=== PATIENT | female | born 1940 | race Caucasian/White ===

== ENCOUNTER → 2017-10-13 13:41 | Outpatient (REF) | payer MEDICARE, MEDICAID, SELFPAY ==
[2017-10-13 13:55] LABS: Occult Blood,Stool Negative (Negative)
== END ==
LOC: LAB 13:41
PROVIDERS: Visit Provider Family Medicine
DX: R19.7 Diarrhea, unspecified (principal)
CPT/HCPCS: 82272; 87177; G0328

== ENCOUNTER → 2017-10-28 13:44 | Outpatient (CLI) | payer MEDICARE, MEDICAID, SELFPAY ==
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
== END ==
PROVIDERS: Family Provider Family Medicine; PCP Family Medicine; Visit Provider Family Medicine
DX: R26.89 Other abnormalities of gait and mobility (principal)
CPT/HCPCS: 70460; Q9967

== ENCOUNTER 2020-03-01 15:33 | Observation (INO) | payer MEDICARE, OTHER, MEDICAID, SELFPAY ==
[2020-03-01] VITALS (8 sets, daily range): BP systolic 97–121; BP diastolic 60–96; PULSE 104–129; RESP 16–28; TEMP 36.6–36.9; O2SAT 95–98; BMI 21.4; BMI 18.7
--- NOTE | 2020-03-01 15:59 | XR_ITS ---
PROCEDURE: XR CHEST PORTABLE CLINICAL HISTORY: soa and low oxygen saturation COMPARISON: CR CXR1 CHEST-PORTABLE from 08/10/2013 CR CXR CHEST(2 VIEWS-NOT PORTABLE) from 11/28/2015 CR XR CHEST PORTABLE from 03/17/2019 FINDINGS: This is a somewhat poor inspiration. There is subtle faint ill-defined nodular opacities right perihilar region and right upper lobe not seen on the previous chest film 03/17/2019. The left lung field is clear. Cardiac size is normal, there is mild aortic tortuosity. IMPRESSION: Poor inspiration with questionable minimal diffuse pneumonic infiltrate right perihilar region and right upper lobe Dictated by: Dr. Gera Esposito MD 03/01/2020 17:16 Dr. Gera Esposito MD in [place] 03/01/2020 17:16
--- NOTE | 2020-03-01 16:01 | PC.NURSE ---
pt presents from [place] , they found pt having soa with o2 sats 79% on RA , ems placed pt on NRB @ 10 lpm with o2 sat of 97% , pt coughed up dark thick sputum en route to hosp. upon arrival to ER o2 decreased to 5 lpm via cannula o2 sat staying around 96%
--- NOTE | 2020-03-01 16:27 | HMH.EDGENADL ---
ED Disposition Clinical Impression: Healthcare-associated pneumonia, Hypernatremia, Dehydration Respiratory failure with hypoxia Qualifiers: Chronicity: acute Qualified Code(s): J96.01 - Acute respiratory failure with hypoxia Disposition: Admitted As Inpatient Condition on Discharge: [facility] - Critical Care Critical Care Time: Yes Attestation: On 03/01/20, the high probability of a clinically significant, sudden or life threatening deterioration of the following system(s) required my full and direct attention, intervention and personal management. The time I documented below is in addition to time spent performing reported procedures but includes the following listed in this critical care notation. Vital system(s) involved:: Respiratory Failure My critical care processes included: Assessment & monitoring of V/S, Initial and Re-exams, Data Review/Interpretation, Coordinating Care, Medication Orders and management, Documentation Medical Decision Making - Brian Inquiry Pt receiving controlled substance: No Vital Signs: 03/01/20 15:35 03/01/20 16:05 03/01/20 16:30 Temperature 98 F Temperature Source Axillary Pulse Rate [Radial] 110 H 105 H 104 H Respiratory Rate 26 H 24 24 Blood Pressure [Right Arm] 110/80 110/60 121/65 Blood Pressure Mean [Right Arm] 90 76 83 Blood Pressure Source [Right Arm] Manual Cuff/ Auscultation Automatic Cuff Blood Pressure Position [Right Arm] Sitting Sitting 02 Sat by Pulse Oximetry 98 95 95 Oxygen Delivery Method Nasal Cannula Nasal Cannula Nasal Cannula Oxygen Flow Rate (LPM) 5 5 5 03/01/20 18:01 Temperature Temperature Source Pulse Rate [Radial] 112 H Respiratory Rate 18 Blood Pressure [Right Arm] 112/96 H Blood Pressure Mean [Right Arm] 101 Blood Pressure Source [Right Arm] Automatic Cuff Blood Pressure Position [Right Arm] 02 Sat by Pulse Oximetry 95 Oxygen Delivery Method Oxygen Flow Rate (LPM) - Lab Data Lab Results 03/01/20 15:45: WBC 18.1 H, RBC 5.38, Hgb 16.1, Hct 52.5 H, MCV 97.6, MCH 30.0, MCHC 30.7 L, RDW 14.7, Plt Count 521 H, MPV 9.1, Neut % (Auto) 76.0, Lymph % (Auto) 18.0, [place] % (Auto) 4.6, Eos % (Auto) 0.6, Baso % (Auto) 0.8, Neut # (Auto) 13.8 H, Lymph # (Auto) 3.2, [place] # (Auto) 0.8, Eos # (Auto) 0.1, Baso # (Auto) 0.1, Total Counted 100, Neutrophils % (Manual) 71, Lymphocytes % (Manual) 22, Monocytes % (Manual) 6, Eosinophils % (Manual) 1, Platelet Estimate Moderate increase, RBC Morphology Normal, Hypochromasia 2+ 03/01/20 15:45: Lactate 3.6 H 03/01/20 15:45: SARS-CoV-2 IgG Ab (Rapid) Negative, SARS-CoV-2 IgM Ab (Rapid) Negative 03/01/20 16:00: Specimen Source Left radial, O2 % 5 lpm nc, ABG pH 7.33 L, ABG pCO2 42.9, ABG pO2 62.4 L, ABG HCO3 22.0, ABG Total CO2 23.3, ABG O2 Saturation 91, ABG Base Excess -4.0 L, Baron Test Patient unable 03/01/20 16:42: Sodium 161 H*, Potassium 4.7, Chloride 120 H, Carbon Dioxide 29, Anion Gap 16.7 H, BUN 83 H, Creatinine 1.10 H, Estimated Creat Clear 34, Estimated GFR 48 L, Est GFR ( Amer) 58 L, Glucose 303 H, Calcium 9.9, Troponin I 0.01 03/01/20 16:52: Procalcitonin 0.162 03/01/20 17:30: Urine Color Yellow, Urine Appearance Clear, Urine pH 5.5, Ur Specific [place] 1.015, Urine Protein Negative, Urine Glucose (UA) 3+, Urine Ketones Negative, Urine Blood Negative, Urine Nitrate Negative, Urine Bilirubin Negative, Urine Urobilinogen 0.2, Ur Leukocyte Esterase Negative, Urine WBC Occasional, Ur Squamous Epith Cells 3-5, Urine Bacteria Trace, Hyaline Casts 3-5 Result diagrams: 03/01/20 15:45 03/01/20 16:42 Orders (Tests/Meds): ED MEDICATIONS Generic Name Dose Route Start Last Admin Trade Name Freq PRN Reason Stop Dose Admin Sodium Chloride 1,000 mls @ 999 mls/hr 03/01/20 17:15 03/01/20 17:06 Sod Chlor 0.9% 1000ml Bag IV 03/01/20 18:15 999 mls/hr .Q1H1M NORMA Administration ORDERS Category Date Time Status Full Resp Panel w/COVID ([facility]) Routine Lab 03/01/20 16:15 Received Troponin I Q3H [place]
[2020-03-01 16:28] LABS: ABG Oxygen Saturation 91 % (90-100); ABG PCO2 42.9 mmhg (35.0-45.0); ABG PH 7.33 mmol/L (7.35-7.45); ABG PO2 62.4 mmhg (80-100); ABG TCO2 23.3 mmhg (23-27)
--- NOTE | 2020-03-01 16:29 | PC.NURSE ---
full resp swab sent to lab
[2020-03-01 16:30] LABS: Basophils # 0.1 K/mm3 (0-0.2); Basophils % 0.8 % (0.1-2.0); Eosinophils # 0.1 K/mm3 (0.0-0.4); Eosinophils % 0.6 % (0.1-12.0); Hematocrit 52.5 % (37.0-47.0); Hemoglobin 16.1 g/dL (12.2-16.2); Lymphocytes # 3.2 K/mm3 (0.7-4.5); Mean Corpuscular HGB Conc 30.7 g/dL (31.8-35.4); Mean Corpuscular Volume 97.6 fl (81-99); Mean Platelet Volume 9.1 fl (7.4-10.4); Monocytes # 0.8 K/mm3 (0.1-1.0); Monocytes % 4.6 % (1.7-9.3); Neutrophils # 13.8 K/mm3 (1.8-7.8); Platelet Count 521 K/mm3 (142-424); Red Blood Count 5.38 M/mm3 (4.20-5.40); Red Cell Distribution Width 14.7 % (11.5-17.5); White Blood Count 18.1 K/mm3 (4.8-10.8)
--- NOTE | 2020-03-01 16:33 | ECG_ITS ---
APPROVED REPORT Exam: Resting ECG HR:105 bpm ECG Measurements Heart Rate 105 AXES IA 154 P 52 QRSd 76 QRS -85 QT 360 T 70 QTc 475 Conclusion Sinus tachycardia Left anterior fascicular block Inferior infarct, age undetermined Possible Anterolateral infarct, age undetermined Abnormal ECG Electronically signed by : Mohamud Esparza, 03/01/2020 19:50:55
[2020-03-01 16:34] LABS: Oxygen 5 LPM NC %
[2020-03-01 16:35] LABS: Allen's Test Patient Unable
[2020-03-01 16:36] LABS: Source Left Radial
[2020-03-01 16:37] LABS: MANUAL DIFFERENTIAL MANUAL DIFFERENTIAL (MANUAL DIFF)
[2020-03-01 16:42] LABS: Lactic Acid 3.6 mmol/L (0.7-2.1)
[2020-03-01 16:48] LABS: Eosinophils % 1 % (0-3); Lymphocytes % 22 % (10-50); Monocytes % 6 % (2-9); Neutrophils % 71 % (42-76); Platelet Estimate Moderate Increase; RBC Morphology Normal; Total Cells Counted 100
[2020-03-01 16:49] LABS: Hypochromasia 2+
[2020-03-01 17:03] LABS: Adenovirus,PCR Not Detected (NotDetected); Bordetella Pertussis Not Detected (NotDetected); Chlamydophila Pneumoniae, PCR Not Detected (NotDetected); Coronavirus 19, PCR Not Detected (NotDetected); Coronavirus 229E Not Detected (NotDetected); Coronavirus NL63 Not Detected (NotDetected); Coronavirus OC43 Not Detected (NotDetected); Coronovirus HKU1,PCR Not Detected (NotDetected); Human Metapneumovirus Not Detected (NotDetected); Influenza A, PCR Not Detected (NotDetected); Influenza AH1, 2009 Not Detected (NotDetected); Influenza AH1, PCR Not Detected (NotDetected); Influenza AH3,PCR Not Detected (NotDetected); Influenza B, PCR Not Detected (NotDetected); Mycoplasma Pneumoniae, PCR Not Detected (NotDetected); Parainfluenza 1, PCR Not Detected (NotDetected); Parainfluenza 2, PCR Not Detected (NotDetected); Parainfluenza 3, PCR Not Detected (NotDetected); Parainfluenza 4, PCR Not Detected (NotDetected); Respiratory Syncytial Virus Not Detected (NotDetected); Rhinovirus/Enterovirus Not Detected (NotDetected)
[2020-03-01 17:07] LABS: Chloride 120 mmol/L (98-107); Potassium 4.7 mmoL/L (3.5-5.1)
[2020-03-01 17:09] LABS: Sodium 161 mmol/L (136-145)
[2020-03-01 17:10] LABS: Anion Gap 16.7 mEq/L (5-15); Calcium 9.9 mg/dl (8.4-10.2); Carbon Dioxide 29 mmol/L (22.0-30.0); Creatinine Clearance Estimated 34 mL/min (50-200); Estimated Glomerular Filt Rate 48 ml/min (>60); GFR (African American) 58 ML/MIN (>60); Glucose 303 mg/dl (74-100)
[2020-03-01 17:27] LABS: Troponin I 0.01 ng/ml (0.00-0.034)
[2020-03-01 17:28] LABS: Blood Urea Nitrogen 83 mg/dl (7-17)
--- NOTE | 2020-03-01 17:51 | PC.NURSE ---
Dr Maza spoke with Dr Villar about admission awaiting covid test results.
[2020-03-01 17:52] LABS: Microscopic, Urine URINE MICROSCOPIC (MICROSCOPIC)
[2020-03-01 18:05] LABS: Appearance,Urine CLEAR (Clear); Bilirubin,Urine Negative (Negative); Blood, Urine Negative (Negative); Color,Urine YELLOW (Yellow); Glucose,Urine (UA) 3+ (Negative); Ketones,Urine Negative (Negative); Leukocyte Esterase,Urine Negative (Negative); Nitrate,Urine Negative (Negative); PH,Urine 5.5 (5.0-8.5); Protein,Urine Negative (Negative); Specific Gravity, Urine 1.015 (1.005-1.030); Urobilinogen,Urine 0.2 EU/dl (0.2)
[2020-03-01 18:17] LABS: Coronavirus 19 IgG Antibody Negative (Negative); Coronavirus 19 IgM Antibody Negative (Negative)
[2020-03-01 18:23] LABS: Procalcitonin 0.162 ng/mL (0.0-2.0)
[2020-03-01 18:38] LABS: Bacteria,Urine Trace /lpf; WBC,Urine Occasional #/hpf (0-3)
--- NOTE | 2020-03-01 19:47 | HMH.PHAVTE ---
[facility] Pharmacy VTE Monitoring - Patient Demographics Admission date: 03/01/20 Report Date: 03/01/20 Time: 19:47 Allergies/Adverse Reactions: Patient Allergies No Known Allergies Allergy (Verified 09/29/17 18:29) Height: 1.52 m Weight: 49.895 kg Patient Problems: Current Active Problems Healthcare-associated pneumonia (Acute) Hypernatremia (Acute) Dehydration (Acute) Respiratory failure with hypoxia (Acute) - VTE Risk Labs: VTE Related Lab Results Hgb 16.1 g/dL (12.2-16.2) 03/01/20 15:45 Hct 52.5 % (37.0-47.0) H 03/01/20 15:45 Plt Count 521 K/mm3 (142-424) H 03/01/20 15:45 BUN 83 mg/dl (7-17) H 03/01/20 16:42 Creatinine 1.10 mg/dl (0.52-1.04) H 03/01/20 16:42 Estimated Creat Clear 34 mL/min (50-200) 03/01/20 16:42 Clinical Trial Participant: No - Prophylaxis VTE Prophylaxis Ordered?: Yes Types of VTE Prophylaxis: TEDS Knee High
--- NOTE | 2020-03-01 19:53 | PC.NURSE ---
PT ARRIVED TO FLOOR VIA STRETCHER AT 194
[2020-03-01 19:56] LABS: Troponin I 0.03 ng/ml (0.00-0.034)
[2020-03-01 20:28] LABS: Reflex Lactic Add Lactic Reflex
--- NOTE | 2020-03-01 20:38 | PC.NURSE ---
Attempted to call pt's Saturnino RODRÍGUEZ regarding pts code status. Son did not answer, message left w/ son.
[2020-03-01 21:09] LABS: Lactic Acid Follow Up (RFLX 1) 2.8 mmol/L (0.7-2.1)
--- NOTE | 2020-03-01 21:15 | PC.NURSE ---
Attempted to reach son again regarding code status for pt.
--- NOTE | 2020-03-01 21:35 | PC.NURSE ---
attempted to reach son in regards to code status
--- NOTE | 2020-03-01 21:47 | PC.NURSE ---
2138 MR.KINSEY CROW EMANUELHAYDE RETURNED MY CALL .DIFFERENT STEPS OF CODE STEPS REVIEWED WITH HIM CONCERNING HIS MOM.THOSE WHICH HE AGREED UPON WERE NOTED AND WITNESSED BY JUSTYNA SALDANA RN,HER NURSE. HE WAS GIVEN VISTIING HOUR TIMES AND THAT IF HE NEEDED TO CHECK ON HIS MOM HE COULD CALL AND TALK WITH HER NURSE
[2020-03-01 22:51] LABS: Reflex Lactic (2 hrs) Add Lactic Reflex
[2020-03-01 23:20] LABS: POC Glucose,Bedside 156 (70-110)
[2020-03-01 23:34] LABS: Lactic Acid Follow up (RFLX 2) 3.2 mmol/L (0.7-2.1)
[2020-03-02] VITALS (8 sets, daily range): BP systolic 102–121; BP diastolic 59–70; PULSE 101–113; RESP 18–30; TEMP 36.2–37.9; O2SAT 94–99; BMI 18.5; BMI 18.6
--- NOTE | 2020-03-02 04:35 | PC.NURSE ---
Pt is arousable to name, but hard to awaken. Lung sounds have coarse crackles heard t/o lung bases. Pt was successfully weaned down to 2L NC this shift. Pt has required suctioning multiple times this shift. Clear yellow/brown sputum is drained out during suctioning. Pt had a temp of 100.1 earlier this shift, PRN tylenol suppository administered per MAR. Pt has been afebrile since. Flores remains patent and intact and continues to drain clear, dark yellow urine per gravity. LR continues to infuse @ 125 ml/hr. 20g PIV remains patent and intact in rt wrist. No other acute changes or complaints at this time.
[2020-03-02 05:41] LABS: POC Glucose,Bedside 226 (70-110)
[2020-03-02 06:32] LABS: Basophils # 0.1 K/mm3 (0-0.2); Basophils % 0.3 % (0.1-2.0); Hematocrit 46.8 % (37.0-47.0); Lymphocytes # 1.1 K/mm3 (0.7-4.5); Lymphocytes % 7.3 % (10-50); Mean Corpuscular HGB Conc 28.9 g/dL (31.8-35.4); Mean Corpuscular Hemoglobin 28.2 pg (27.0-31.2); Mean Corpuscular Volume 97.8 fl (81-99); Mean Platelet Volume 7.9 fl (7.4-10.4); Monocytes # 0.8 K/mm3 (0.1-1.0); Monocytes % 5.3 % (1.7-9.3); Neutrophils % 87.1 % (37.0-80.0); Platelet Count 280 K/mm3 (142-424); Red Blood Count 4.79 M/mm3 (4.20-5.40); Red Cell Distribution Width 14.2 % (11.5-17.5)
[2020-03-02 06:36] LABS: Chloride 125 mmol/L (98-107)
[2020-03-02 06:37] LABS: Potassium 4.3 mmoL/L (3.5-5.1)
[2020-03-02 06:40] LABS: Anion Gap 16.3 mEq/L (5-15); Blood Urea Nitrogen 75 mg/dl (7-17); Calcium 9.2 mg/dl (8.4-10.2); Carbon Dioxide 26 mmol/L (22.0-30.0); Creatinine Clearance Estimated 32 mL/min (50-200); Estimated Glomerular Filt Rate 61 ml/min (>60); GFR (African American) 73 ML/MIN (>60); Glucose 276 mg/dl (74-100)
[2020-03-02 06:59] LABS: MANUAL DIFFERENTIAL MANUAL DIFFERENTIAL (MANUAL DIFF)
[2020-03-02 07:04] LABS: Hemoglobin 13.5 g/dL (12.2-16.2)
[2020-03-02 07:13] LABS: Sodium 163 mmol/L (136-145)
--- NOTE | 2020-03-02 08:05 | HMH.HP ---
*Admission Date: 03/01/20 *Chief complaint: Shortness of breath/dyspnea *History of present illness: 79-year-old female patient presented to the emergency room from [facility]. The staff reports she had a drop in oxygen saturations to 60% on room air. The [facility] staff reported to squad the patient sounded like she aspirated afterwards she was suctioned, placed on 5 L of oxygen per nasal cannula, and was given Lasix. In the emergency department she received cefepime, Levaquin, and clindamycin for possible aspiration. IV fluids were started with lactated Ringer's at 125 cc an hour Lab work revealed white blood cell count 18.1. Chemistries sodium 161, potassium 4.7, BUN 83, and creatinine 1.1 03/01/20 CXR: IMPRESSION: Poor inspiration with questionable minimal diffuse pneumonic infiltrate right perihilar region and right upper lobe Dictated by: Vaibhav, This morning patient sitting in bed, oxygen saturations are 100% on 2 L per nasal cannula. Patient is unresponsive to verbal stimuli and moans with tactile stimuli. Lungs have rhonchi and wheezes, abdomen soft nontender pure wick is in place. Cefepime and levofloxacin will be continued IV, IV fluids will be changed to half-normal saline at 150 an hour [facility] History Medical History: Reports:: Diabetes Mellitus Type 2, Hyperlipidemia, Hypertension Denies:: Diabetes Mellitus Type 1 *Have you ever received a pneumonia vaccine?: Yes *Have you received a flu vaccine this season?: Yes - *Social History Smoking Status: Never smoker Alcohol Intake: never *Occupational Status:: disabled Household Members: other *Travel in the last 8 weeks: None Family Hx:: Unable to obtain Review of Systems - Review of Systems Review of systems:: unable to obtain - Constitutional Denies fever(s), Denies weight gain - Eyes Denies sensitivity to light - *Respiratory Denies cough Meds Home Medications Medication Instructions Recorded Confirmed Type Pioglitazone HCl [Actos] 30 mg PO DAILY 09/29/17 03/01/20 History lisinopriL [Lisinopril 2.5mg Tab] 5 mg PO DAILY 09/29/17 03/01/20 History Empagliflozin [Jardiance] 10 mg PO DAILY 03/17/19 03/01/20 History Insulin Glargine,Hum.rec.anlog 5 units SQ HS 03/17/19 03/01/20 History [Lantus Insulin 100units/mL 10mL vial] LORazepam [Lorazepam] 0.25 mg PO BID 03/17/19 03/01/20 History Melatonin/Pyridoxine HCl (B6) 1 each PO HS 03/17/19 03/01/20 History [Melatonin 5 mg Tablet] Metformin HCl 1,000 mg PO BID 03/17/19 03/01/20 History Simvastatin [Zocor] 10 mg PO HS 03/17/19 03/01/20 History Dextromethorphan HBr/Quinidine 1 each PO BID 03/01/20 03/01/20 History [Nuedexta 20-10 mg Capsule] Empagliflozin [Jardiance] 10 mg PO DAILY 03/01/20 03/01/20 History Memantine HCl [Memantine 10mg 10 mg PO BID 03/01/20 03/01/20 History Tablet] Mirtazapine [Remeron 15mg tablet] 15 mg PO HS 03/01/20 03/01/20 History Allergies Allergy/AdvReac Type Severity Reaction Status Date / Time No Known Allergies Allergy Verified 09/29/17 18:29 Exam Vital signs and Labs for Last 24 Hours: Temp Pulse Resp BP Pulse Ox 99.0 F 110 H 30 H 102/60 L 99 03/02/20 04:00 03/02/20 07:52 03/02/20 04:00 03/02/20 04:00 03/02/20 07:52 Laboratory Results - last 24 hr 03/01/20 15:45: WBC 18.1 H, RBC 5.38, Hgb 16.1, Hct 52.5 H, MCV 97.6, MCH 30.0, MCHC 30.7 L, RDW 14.7, Plt Count 521 H, MPV 9.1, Neut % (Auto) 76.0, Lymph % (Auto) 18.0, [place] % (Auto) 4.6, Eos % (Auto) 0.6, Baso % (Auto) 0.8, Neut # (Auto) 13.8 H, Lymph # (Auto) 3.2, [place] # (Auto) 0.8, Eos # (Auto) 0.1, Baso # (Auto) 0.1, Total Counted 100, Neutrophils % (Manual) 71, Lymphocytes % (Manual) 22, Monocytes % (Manual) 6, Eosinophils % (Manual) 1, Platelet Estimate Moderate increase, RBC Morphology Normal, Hypochromasia 2+ 03/01/20 15:45: Lactate 3.6 H 03/01/20 15:45: SARS-CoV-2 IgG Ab (Rapid) Negative, SARS-CoV-2 IgM Ab (Rapid) Negative 12
[2020-03-02 09:07] LABS: Lymphocytes % 17 % (10-50); Monocytes % 2 % (2-9); Neutrophils % 75 % (42-76); Platelet Estimate Normal; RBC Morphology Normal; Total Cells Counted 100
[2020-03-02 11:28] LABS: POC Glucose,Bedside 145 (70-110)
--- NOTE | 2020-03-02 12:41 | SW/DCPLANNER ---
Addendum entered by Sindy Napoles 03/03/20 10:18: I have follow up with Gerald Guyers regarding this patient. Original Note: This patient currently resides at [facility]. Patient is ICF level of care at [facility]. I will follow up with Gerald Glez until patient is medically stable for discharge.
--- NOTE | 2020-03-02 16:14 | PC.NURSE ---
1610 RN reassessment completed at this time, pt has mostly slept this shift. Pt has required total care this shift with turning Q2H. Pt will awaken to name, with difficulty waking at times. Spontaneous eye opening noted at times, speech is garbled. Oral care provided this shift, has required deep suctioning x2 this shift with green/brown sputum. Rhonchi heard throughout lungs, no s/s respiratory distress. SaO2 WNL on 2L O2. Abd soft with BS active in all quads. F/C patent and draining at bedside. BM noted this shift. Pt is now resting in bed on her right side with bed locked and in lowest position, side rails up x2, bed alarm activated. Will continue to monitor.
[2020-03-02 17:02] LABS: POC Glucose,Bedside 120 (70-110)
[2020-03-02 20:28] LABS: Chloride 124 mmol/L (98-107); Potassium 3.3 mmoL/L (3.5-5.1)
[2020-03-02 20:31] LABS: Anion Gap 18.3 mEq/L (5-15); Blood Urea Nitrogen 45 mg/dl (7-17); Carbon Dioxide 18 mmol/L (22.0-30.0); Creatinine Clearance Estimated 32 mL/min (50-200); Estimated Glomerular Filt Rate 97 ml/min (>60); GFR (African American) 117 ML/MIN (>60); Glucose 176 mg/dl (74-100)
[2020-03-02 20:32] LABS: Calcium 8.7 mg/dl (8.4-10.2)
[2020-03-02 20:33] LABS: Sodium 157 mmol/L (136-145)
[2020-03-02 21:47] LABS: POC Glucose,Bedside 153 (70-110)
[2020-03-03] VITALS (9 sets, daily range): BP systolic 116–139; BP diastolic 55–88; PULSE 68–110; RESP 16–24; TEMP 36.8–38.1; O2SAT 93–99; BMI 19.3
--- NOTE | 2020-03-03 05:49 | PC.NURSE ---
pt has rested with eyes closed most of shift, eyes do spontaneously open at times, pt does make sounds but it is garbled, coarse crackles noted on auscultation t/o, no s/s of respiratory distress, pt has remained on 2L NC with O2 sats 93-99%, merrill catheter patent and draining cloudy yellow urine
[2020-03-03 05:50] LABS: POC Glucose,Bedside 103 (70-110)
--- NOTE | 2020-03-03 06:00 | XR_ITS ---
PROCEDURE: XR CHEST PORTABLE Referring Doctor: Wilberto Burk Patient Age:79Y CLINICAL HISTORY: PNA Respiratory failure, hypoxia, hypernatremia COMPARISON: CR CXR CHEST(2 VIEWS-NOT PORTABLE) from 11/28/2015 CR XR CHEST PORTABLE from 03/17/2019 CR XR CHEST PORTABLE from 03/01/2020 FINDINGS: AP portable upright CXR compared to 03/01/2020 . No prominent findings but suspect very subtle developing infiltrates bilaterally. Left chest: . Suspect subtle patchy developing infiltrate seen projected over the periphery of the left mid lung, (projected over the inferior tip of scapula and anterior 3rd rib) . Question very subtle streaky infiltrate left infrahilar region partially obscuring descending aorta versus March 01 CXR the Right chest:. Question, suspect a subtle peripheral infiltrate right mid lung/right upper lobe projected over the inferior right scapula. Upper normal markings at the right lung base/only question scant subtle wispy infiltrate right lung base The heart normal size,. Mediastinum unremarkable but normal pulmonary vascularity. Generous right infrahilar region, upper normal prominence of may in part be accentuated by the less optimal inspiration today but warrants follow-up . Clips right upper quadrant from cholecystectomy IMPRESSION: Question/and suggestion of very subtle patchy infiltrates bilaterally-as detailed in body of report . These areas very slightly more apparent than 03/01/2020exam CXR Dictated by: Paulino Gonzalez MD 03/03/2020 06:38 Paulino Gonzalez MD in [place] 03/03/2020 06:38
[2020-03-03 10:20] LABS: POC Glucose,Bedside 99 (70-110)
[2020-03-03 16:31] LABS: POC Glucose,Bedside 85 (70-110)
--- NOTE | 2020-03-03 17:02 | HMH.ACPN2 ---
Internal Medicine - PN: Subj *Date: 03/03/20 *Time: 17:02 Interval history: No significant interval changes. Remains neurologically unable to speak or respond to questions. Pure wick system is in place. Chest films show subtle patchy changes, perhaps slightly worsening. Blood culture urine culture are pending. It was reported that at the [facility] he was taking crushed medications in applesauce. A speech evaluation was attempted but not fruitful. She does not have a G-tube. Exam Vital signs and Labs for Last 24 Hours: Temp Pulse Resp BP Pulse Ox 100.6 F H 96 H 18 136/80 97 03/03/20 15:57 03/03/20 15:32 03/03/20 15:32 03/03/20 15:32 03/03/20 15:32 Laboratory Results - last 24 hr 03/02/20 16:45: POC Glucose 120 H 03/02/20 20:15: Sodium 157 H*, Potassium 3.3 L D, Chloride 124 H, Carbon Dioxide 18 L D, Anion Gap 18.3 H, BUN 45 H D, Creatinine 0.60 D, Estimated Creat Clear 32, Estimated GFR 97, Est GFR ( Amer) 117 D, Glucose 176 H D, Calcium 8.7 03/02/20 21:33: POC Glucose 153 H 03/03/20 05:42: POC Glucose 103 03/03/20 10:13: POC Glucose 99 03/03/20 15:55: POC Glucose 85 I & O for Last 24 hours: Intake & Output 02/29/20 03/01/20 03/02/20 03/03/20 23:59 23:59 23:59 23:59 Intake Total 1100 / 1100 1127 / 1127 2014 Output Total 1651 / 1651 1225 / 1225 Balance 1100 / 1100 -524 / -524 790 / 790 Weight 95 lb 6 oz 94 lb 12.78 oz 98 lb 9 oz Microbiology Reports for the Last 24 Hours: Microbiology 03/01/20 15:45 Blood Blood Culture - Preliminary NO GROWTH AFTER 48 HOURS - Constitutional no acute distress, chronically ill appearing - *Routine HEENT Exam Head: Present: atraumatic Eye: Absent: periorbital ecchymosis ENT: Present: mucous membranes moist - *Routine Neck Exam Present: supple. Absent: lymphadenopathy - *Routine Respiratory Exam Present: CTA bilaterally - *Routine Cardiovascular Exam Present: RRR, murmur - *Routine Abdominal Exam Present: soft, normoactive bowel sounds. Absent: tenderness - *Routine Extremities Exam Absent: cyanosis, clubbing, edema - *Routine Skin Exam Present: lesions. Absent: jaundice - *Routine Neurological Exam Present: altered mental status. Absent: facial asymmetry, normal speech, tremors - Routine Psychiatric Exam Present: unable to assess Assessment and Plan (1) Healthcare-associated pneumonia Status: Acute Category: Medical Code(s): J18.9 - Pneumonia, unspecified organism (2) Hypernatremia Status: Acute Category: Medical Code(s): E87.0 - Hyperosmolality and hypernatremia (3) Dehydration Status: Acute Category: Medical Code(s): E86.0 - Dehydration (4) Respiratory failure with hypoxia Status: Acute Qualifiers: Chronicity: acute Qualified Code(s): J96.01 - Acute respiratory failure with hypoxia Category: Medical Code(s): J96.91 - Respiratory failure, unspecified with hypoxia - Assessment and plan all Dx Assessment and Plan for all problems:: As we moved to placement there is some question about transitioning to p.o. medications. Her nutritional intake will have to be clarified. Speech evaluation was noted. Options for G-tube placement will need to be clarified. Otherwise continue her current antibiotic regimen and follow with sequential chest x-rays.
--- NOTE | 2020-03-03 18:20 | PC.NURSE ---
PT HAS RESPONDED TO VOICE BUT HAS BEEN ASLEEP THROUGHOUT SHIFT. PT HAS TOLERATED 2L NC WELL THROUGHOUT SHIFT. RESPIRATIONS REGULAR AND UNLABORED. COARSE CRACKLES NOTED THROUGHOUT LUNGS. NO COUGH NOTED. PT HAS BEEN SUCTIONED NEEDED. PT HAS BEEN TURNED Q2 HOURS TO PREVENT SKIN BREAKDOWN. ORAL CARE PROVIDED Q2 HOURS. BED ALARM ON TO PROMOTE SAFETY. ABDOMEN IS SOFT AND NONTENDER. ACTIVE BOWEL SOUNDS HEARD IN ALL 4 QUADRANTS. NO BM THUS FAR. ABRAMS CATHETER IN PLACE W CLEAR YELLOW URINE NOTED. NO KINKS NOTED. NO EDEMA NOTED. NIRMALA RODRIGUEZ REPORTED PT TAKES MEDS CRUSHED AND GIVEN IN APPLE SAUCE. ATTEMPTED TO GIVE MEDS, BUT PT WOULDN'T OPEN MOUTH. DIDN'T FEEL COMFORTABLE GIVING THEM. THEY ALSO STATED PT DRINKS NECTAR THICK LIQUIDS. ENCOURAGED PT TO DRINKING BUT SHE STILL WOULDN'T OPEN MOUTH. PT HAS MOANED SOME AND THE ASSISTED STATED THAT IS NORMAL FOR HER. THEY ALSO SAID SHE IS ON 2L NC AT THE ASSISTED. PT RECEIVED CEFEPIME AND CLINDAMYCIN THIS SHIFT AND TOLERATED WELL. FSBS WNL. 1/2 NS INFUSING AT 150ML/HR. DISCUSSED [facility]IH DR PELAEZ THIS EVENING ABOUT PT'S CONDITION ABOUT HER NOT EATING OR DRINKING ANYTHING. HE STATED HE PLANS TO TALK TO FAMILY ABOUT CARE AND POSSIBLY TALK TO HOSPICE OR PLACE A FEEDING TUBE DEPENDING ON WHAT FAMILY WOULD LIKE. PT HAD A FEVER ONCE THIS SHIFT AND RECEIVED TYLENOL. PT IS SLEEPING W BED IN LOWEST POSITION. CALL LIGHT WITHIN REACH. BED IN LOWEST POSITION. VSS. WILL CONTINUE TO MONITOR.
[2020-03-03 21:21] LABS: POC Glucose,Bedside 82 (70-110)
--- NOTE | 2020-03-03 22:00 | PC.NURSE ---
WITH THE SRNA GIVING PT A BATH,LISTENED TO PT'S LUNGS THROUGHOUT,COASE CRACKLES NOTED MORE SO WITH INSPIROTORY BREATHING,TRIED SUCTIONING WITH YALKNER AND PT WOULD CLAP HER TEETH TOGETHER AND WOULD NOT LET YOU SUCTION HER.OBTAINED A SUCTION CATH AND WAS ABLE TO GET BETWEEN HER MISSING TEETH AND SUCTION HER,MUCUS NOTED IN CANISTER,PT LUNGS SOUND BETTER,I BELIEF MORE OF WHAT WAS HEARD WAS IN PT THROAT
[2020-03-04] VITALS (7 sets, daily range): BP systolic 121–151; BP diastolic 62–76; PULSE 72–109; RESP 16–27; TEMP 36.2–36.9; O2SAT 94–100; BMI 19.8
--- NOTE | 2020-03-04 01:11 | PC.NURSE ---
AUDIBLE GURGLING NOTED,PT AT TIMES WOULD COUGH.WITH TRYING TO SUCTION HER MOUTH WITH YALKNER SHE WOULD BUSINESS SERVICES COORDINATOR HER TEETH TOGETHER AND WOULD NOT LET YOU SUCTION,ORAL CARE GIVEN WITH THIS PT OPENED MOUTH A LITTLE,WAS ABLE TO SUCTION A LITTLE
--- NOTE | 2020-03-04 05:30 | PC.NURSE ---
PT SEEMS TO BE RESTING BETTER AFTER SHE WAS SUCTIONED A COUPLE TIMES TONIGHT WITH SUCTION CATH.RESP.EVEN AND UNLABORED THIS MORNING.LUNGS STILL WITH FINE CRACKLES.SAT.LEVEL AT 100% ON 2 LITERS OF OXYGEN,PT IS NOT ALERT OR ORIENTED,SOME RESPONSE TO VOICE,ABRAMS CATH PATENT AND DRAINING CLEAR YELLOW URINE.FSBS 83,PT IS NPO,SHE HAS BEEN TURNED EVERY 2 HOURS WITH ORAL CARE,PT MOUTH DRY THIS MORNING,ORAL CARE DONE AND LIP MOISTERIZER APPLIED.SKIN TAGS AND RAISED AREAS ON SKIN THROUGHOUT BODY,
[2020-03-04 05:42] LABS: POC Glucose,Bedside 83 (70-110)
--- NOTE | 2020-03-04 06:00 | XR_ITS ---
PROCEDURE: XR CHEST PORTABLE CLINICAL HISTORY: PNA COMPARISON: CR XR CHEST PORTABLE from 03/17/2019 CR XR CHEST PORTABLE from 03/01/2020 CR XR CHEST PORTABLE from 03/03/2020 FINDINGS: This is a poor inspiration, however there now is more diffuse ill-defined nodular opacities involving the entire right lung. The small focal questionable passively left perihilar region is stable and actually very faint. The remainder of the left lung field is clear. Cardiac size is normal and vascularity is normal and there is no pleural fluid. IMPRESSION: Diffuse subtle nodular opacities right lung and in this clinical environment Covid19 19 pneumonia must be considered Dictated by: Dr. Gera Esposito MD 03/04/2020 08:32 Dr. Gera Esposito MD in [place] 03/04/2020 08:32
--- NOTE | 2020-03-04 08:20 | PC.NURSE ---
Pt lying in bed gurgling upon entering room. HOB raised and oropharyngeal suction performed. Thick white frothy secretions noted (enough to fill suction tubing). Pt resistive to suctioning and biting tube. Still hearing audible crackles and small amt of gurgling. O2 sats remain 90%>, continues O2 at 2LNC.
--- NOTE | 2020-03-04 10:20 | PC.NURSE ---
notified of results of recent chest xray. Asked MD if it was ok to reorder Covid test. V/U. Order received.
--- NOTE | 2020-03-04 10:29 | PC.NURSE ---
Full Resp Panel reordered r/t results of Pt's recent Chest Xray
[2020-03-04 10:57] LABS: Adenovirus,PCR Not Detected (NotDetected)
[2020-03-04 10:58] LABS: Bordetella Pertussis Not Detected (NotDetected); Chlamydophila Pneumoniae, PCR Not Detected (NotDetected); Coronavirus 19, PCR Not Detected (NotDetected); Coronavirus 229E Not Detected (NotDetected); Coronavirus NL63 Not Detected (NotDetected); Coronavirus OC43 Not Detected (NotDetected); Coronovirus HKU1,PCR Not Detected (NotDetected); Human Metapneumovirus Not Detected (NotDetected); Influenza A, PCR Not Detected (NotDetected); Influenza AH1, 2009 Not Detected (NotDetected); Influenza AH1, PCR Not Detected (NotDetected); Influenza AH3,PCR Not Detected (NotDetected); Influenza B, PCR Not Detected (NotDetected); Mycoplasma Pneumoniae, PCR Not Detected (NotDetected); Parainfluenza 1, PCR Not Detected (NotDetected); Parainfluenza 2, PCR Not Detected (NotDetected); Parainfluenza 3, PCR Not Detected (NotDetected); Parainfluenza 4, PCR Not Detected (NotDetected); Respiratory Syncytial Virus Not Detected (NotDetected); Rhinovirus/Enterovirus Not Detected (NotDetected)
--- NOTE | 2020-03-04 12:35 | PC.NURSE ---
Pt noted to have small amt of secretions coming from the corners of her mouth. Oropharyngeal suction performed again. Moderate amt of white frothy secretions noted. Audible gurgles still heard. Respirations have increased and are more labored than earlier this morning. Pt now breathing with pursed lips. aware of status.
[2020-03-04 13:00] LABS: POC Glucose,Bedside 81 (70-110)
--- NOTE | 2020-03-04 13:28 | DIET.NUTRFU ---
Addendum entered by Zara Sagastume 03/04/20 17:03: MD attempting to contact pt's son for decision regarding nutritional support or hospice. If pt has Gtube placed, recommend the following regimen upon MD order: Recommend initiating continuous tube feeding regimen of Pulmocare 1.5 at 20ml/hr and advance by 10ml/hr q 8hrs as tolerated to goal rate of 44ml/hr. Pt currently receiving IVF at 150ml/hr. If TF initiated, recommend minimal water flushes of 60ml with GRV checks and decreasing IVF rate as TF rate is increased. Formula provides 760ml/day at goal rate. Will monitor IVF to adjust water flushes. This regimen meets pt's increased energy/protein needs rt ARF by providing 1452kcal, 61g protein, 102g cho, 90g fat, 760ml free water. Original Note: Pt has refused all nourishment t/o stay. Speech saw her yesterday and was not able to complete full eval dt pt's mentation, NPO recommended at this time. Pt to have continued speech eval as mentation improves. She is on a puree diet with nectar thick liquids at [facility]. 5.7# weight gain t/o stay (3 days). BG have decreased from avg. 170 to WNL yesterday and today, lowest reading 81. If pt continues without improvement in ability to tolerate oral intake, nutritional support indicated if option for pt. Continuing to monitor pt and follow further care plans.
--- NOTE | 2020-03-04 13:44 | PC.NURSE ---
Oral Care performed on pt.
--- NOTE | 2020-03-04 14:50 | HMH.ACPN2 ---
Internal Medicine - PN: Subj *Date: 03/04/20 *Time: 14:51 Interval history: Patient remains unresponsive, no interval neurologic changes. T-max is 100.1. We are following sequential chest x-rays. Patchy infiltrative processes are noted. Nothing looks dense or consolidated yet. The patient is not taking anything by mouth, speech therapy and swallow studies are not feasible. I made several attempts to contact the patient's son, left a message on his recorder. I would like to discuss with him the possibility of either G-tube placement or hospice placement. We are currently covering her pneumonia with IV antibiotics. We will do a repeat PCR given the wording of today's x-ray. Exam Vital signs and Labs for Last 24 Hours: Temp Pulse Resp BP Pulse Ox 98.4 F 107 H 27 H 151/65 H 97 03/04/20 12:00 03/04/20 12:00 03/04/20 13:23 03/04/20 12:00 03/04/20 13:23 Laboratory Results - last 24 hr 03/03/20 15:55: POC Glucose 85 03/03/20 21:02: POC Glucose 82 03/04/20 05:14: POC Glucose 83 03/04/20 10:48: Chlamy pneumoniae PCR Not detected, Adenovirus (PCR) Not detected, B. pertussis DNA (PCR) Not detected, Coronavirus OC43 (PCR) Not detected, Coronavirus HKU1 (PCR) Not detected, Coronavirus 229E (PCR) Not detected, SARS-CoV-2 (PCR) Not detected, Coronavirus NL63 (PCR) Not detected, Human Metapneumovir PCR Not detected, Influenza A (H1) PCR Not detected, Influ A (H1N1/09) PCR Not detected, Influenza A (H3) PCR Not detected, Influenza Type A (PCR) Not detected, Influenza Type B (PCR) Not detected, M. pneumoniae (PCR) Not detected, Parainfluenza 1 (PCR) Not detected, Parainfluenza 2 (PCR) Not detected, Parainfluenza 3 (PCR) Not detected, Parainfluenza 4 (PCR) Not detected, RSV (PCR) Not detected, Entero/Rhino (PCR) Not detected 03/04/20 12:44: POC Glucose 81 I & O for Last 24 hours: Intake & Output 12/03/02/20 03/03/20 03/04/20 23:59 23:59 23:59 23:59 Intake Total 1100 / 1100 1127 / 1127 3394 / 3394 1199 / 1199 Output Total 1651 / 1651 1225 / 1675 450 / 450 Balance 1100 / 1100 -524 / -524 2169 / 1719 749 / 749 Weight 95 lb 6 oz 94 lb 12.78 oz 98 lb 9 oz 101 lb 1.6 oz Microbiology Reports for the Last 24 Hours: Microbiology 03/01/20 15:45 Blood Blood Culture - Preliminary NO GROWTH AFTER 48 HOURS 03/01/20 15:45 Blood Blood Culture - Preliminary NO GROWTH AFTER 48 HOURS - Constitutional no acute distress, chronically ill appearing, somnolent - *Routine HEENT Exam Head: Present: normocephalic Eye: Present: EOMI, PERRL ENT: Present: mucous membranes moist - *Routine Neck Exam Present: supple. Absent: lymphadenopathy - *Routine Respiratory Exam Present: rhonchi. Absent: accessory muscle use, respiratory distress, wheezes - *Routine Cardiovascular Exam Present: RRR - *Routine Abdominal Exam Present: soft, normoactive bowel sounds. Absent: tenderness - *Routine Extremities Exam Absent: cyanosis, clubbing, edema - *Routine Skin Exam Present: intact, lesions. Absent: jaundice - *Routine Neurological Exam Present: altered mental status. Absent: alert, oriented X3, fasciculations, normal speech, tremors Assessment and Plan (1) Healthcare-associated pneumonia Status: Acute Category: Medical Code(s): J18.9 - Pneumonia, unspecified organism (2) Hypernatremia Status: Acute Category: Medical Code(s): E87.0 - Hyperosmolality and hypernatremia (3) Dehydration Status: Acute Category: Medical Code(s): E86.0 - Dehydration (4) Respiratory failure with hypoxia Status: Acute Qualifiers: Chronicity: acute Qualified Code(s): J96.01 - Acute respiratory failure with hypoxia Category: Medical Code(s): J96.91 - Respiratory failure, unspecified with hypoxia (5) Unable to eat Status: Acute Category: Medical Code(s): 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
--- NOTE | 2020-03-04 14:55 | PC.NURSE ---
discussing POC for pt with her son.
[2020-03-04 15:27] LABS: Basophils # 0.2 K/mm3 (0-0.2); Eosinophils # 0.1 K/mm3 (0.0-0.4); Eosinophils % 0.2 % (0.1-12.0); Hematocrit 51.2 % (37.0-47.0); Hemoglobin 14.8 g/dL (12.2-16.2); Lymphocytes # 1.8 K/mm3 (0.7-4.5); Lymphocytes % 8.4 % (10-50); Mean Corpuscular HGB Conc 28.8 g/dL (31.8-35.4); Mean Corpuscular Hemoglobin 28.5 pg (27.0-31.2); Mean Corpuscular Volume 98.8 fl (81-99); Mean Platelet Volume 7.9 fl (7.4-10.4); Monocytes # 0.9 K/mm3 (0.1-1.0); Monocytes % 4.3 % (1.7-9.3); Neutrophils # 18.4 K/mm3 (1.8-7.8); Platelet Count 425 K/mm3 (142-424); Red Blood Count 5.18 M/mm3 (4.20-5.40); Red Cell Distribution Width 14.5 % (11.5-17.5); White Blood Count 21.4 K/mm3 (4.8-10.8)
[2020-03-04 15:31] LABS: MANUAL DIFFERENTIAL MANUAL DIFFERENTIAL (MANUAL DIFF)
[2020-03-04 15:32] LABS: Chloride 118 mmol/L (98-107); Sodium 148 mmol/L (136-145)
[2020-03-04 15:33] LABS: Potassium 4.2 mmoL/L (3.5-5.1)
[2020-03-04 15:35] LABS: Alanine Aminotransferase 15 U/L (12-78); Albumin Level 3.7 g/dl (3.5-5.0); Alkaline Phosphatase 102 U/L (38-126); Aspartate Amino Transferase 24 U/L (14-36); Bilirubin,Total 0.5 mg/dl (0.2-1.3); Blood Urea Nitrogen 18 mg/dl (7-17); Calcium 8.8 mg/dl (8.4-10.2); Creatinine Clearance Estimated 34 mL/min (50-200); Estimated Glomerular Filt Rate 97 ml/min (>60); GFR (African American) 117 ML/MIN (>60); Globulin 3.6 g/dL (1.3-3.2); Glucose 128 mg/dl (74-100); Total Protein,Serum 7.3 g/dl (6.3-8.2)
[2020-03-04 15:50] LABS: Anion Gap 29.2 mEq/L (5-15)
[2020-03-04 15:51] LABS: Carbon Dioxide < 5 mmol/L (22.0-30.0)
[2020-03-04 15:53] LABS: Lymphocytes % 10 % (10-50); Monocytes % 2 % (2-9); Neutrophils % 78 % (42-76); RBC Morphology Normal; Total Cells Counted 100
[2020-03-04 15:54] LABS: Hypochromasia 2+; Platelet Estimate Normal
--- NOTE | 2020-03-04 16:00 | PC.NURSE ---
Per , pt's son has informed him that he prefers to go the Hospice route with treatment and that he knows his mother would not want a G-tube, etc. Keeping her as comfortable as she can be is what's important.
--- NOTE | 2020-03-04 17:38 | PC.NURSE ---
Pt sleeping soundly at this time.
[2020-03-04 18:40] LABS: POC Glucose,Bedside 104 (70-110)
[2020-03-04 20:22] LABS: POC Glucose,Bedside 150 (70-110)
[2020-03-05] VITALS (12 sets, daily range): BP systolic 60–136; BP diastolic 40–87; PULSE 96–102; RESP 24–40; TEMP 34.3–36.8; O2SAT 90–95; BMI 20.5
--- NOTE | 2020-03-05 00:23 | PC.NURSE ---
Patient was resting comfortably, started to moan. Went to assess patient as this has not been her norm as patient has been nonresponsive throughout the shift. Noted edema in right hand was significantly worse and extended up to her elbow. Discontinued IV out of fear of infiltration.Access moved to left ac in spite of cyanotic fingers and hand. SRNA at same time was getting vitals and was unable to get an auxillary or oral temperature. Rectal temperature read 95.1. Applied several warm blankets and paged . stated that son wanted patient to be kept comfortable with no extreme measures. advised to apply warm blankets and follow protocol on hypothermia. Will use tea hugger if necessary. Advised to notify him if patients statues continues to decline. Also advised to notify son if unable to increase patients temperature so that he can be well informed of mothers condition. Will continue to monitor.
--- NOTE | 2020-03-05 01:13 | PC.NURSE ---
Patients temperature upon recheck was 94.6. Bairhugger applied per protocol.
--- NOTE | 2020-03-05 01:22 | PC.NURSE ---
Attempted to notify son regarding mothers decreasing temperature per request. Left voicemail with family to return call. Continuing to monitor mother.
--- NOTE | 2020-03-05 04:42 | PC.NURSE ---
Patient is resting in bed. Neuro: Patient does not respond to stimuli. Doesn't respond to name. Pupils are still reactive and equal. Patient will bite down when getting oral care. Patient did begin moaning very loudly tonight. Cardiac: Patient has been ns/st throughout shift. Blood pressure is normotensive. Patient did become hypothermic during the night. Temperature dropped to 94.6. Warm blankets applied to patient, when that did not work we used the bairhugger per protocol. was notified of all of this, see prior note for clarification. Temperature is being checked q1 hr rectally. Last temperature was 96.9. Edema became worse through the night in right arm. Arm is now elevated on 2 pillows. Left hand and fingers remain very cyanotic. Pulm: Patient remains on 2l nc, humidification added. Patients lungs have coarse crackles throughout. Attempted to suction patient throughout the night, very little secretions. Sputum sample is still needed. GI: Patient has had no vomiting. Loose bm tonight. blood glucose at 9 pm was 150. No coverage needed. : Flores in place, urine is pale, yellow. IV access lost throughout the night. New iv placed in left ac. 20g. Bruising was noted in left ac prior to placing the IV. There was no other vein that was easily palpable or visually noted. It was reluctant to use the left ac due to condition of fingers. notified. Patient has an area of possible concern on her coccyx. Reddened area. Treated with barrier cream and mepilex. Will photograph with next bm. Attempted to notify son tonight of mothers hypothermia. Was unable to reach him. Left a voicemail earlier in the night. Still has not called. Will defer to next shift if son doesnt call back. Will continue to monitor patients temperature and condition.
--- NOTE | 2020-03-05 06:00 | XR_ITS ---
PROCEDURE: XR CHEST PORTABLE CLINICAL HISTORY: PNA COMPARISON: CR XR CHEST PORTABLE from 03/01/2020 CR XR CHEST PORTABLE from 03/03/2020 CR XR CHEST PORTABLE from 03/04/2020 FINDINGS: The cardiomediastinal silhouette and pulmonary vascularity are within normal limits. There now are mild diffuse nodular opacities in the right perihilar region and right lower lobe and also minimally involving the proximal right upper lobe. The left lung remains clear. However there is minimal blunting of the left costophrenic angle suggesting a tiny pleural effusion. IMPRESSION: Mild diffuse infiltrates seen in the right upper and right lower lobe, left lung remaining centrally clear Dictated by: Dr. Gera Esposito MD 03/05/2020 10:08 Dr. Gera Esposito MD in [facility] 03/05/2020 10:08
[2020-03-05 06:07] LABS: POC Glucose,Bedside 208 (70-110)
--- NOTE | 2020-03-05 06:50 | PC.NURSE ---
Son Isai returned call. Informed Isai of the issues regarding mothers decreasing temperature overnight. Isai asked if Hospice would reach out to him and follow mother to the halfway. Advised Isai that I would pass along in report that family would like to speak with either or case management regarding hospice involvement as it is his wish at this time that his mother be kept comfortable with hospice services.
--- NOTE | 2020-03-05 07:51 | PC.NURSE ---
DR PELAEZ CONTACTED REGARDING PT DETERIORATING STATUS, MANUAL BP OBTAINED BY THIS NURSE WAS 60/40. RESPIRATIONS WERE NOTED TO BE 26 PER MINUTE, DR PELAEZ SUGGESTED THIS NURSE CONTACT FAMILY REGARDING PT WORSENING CONDITION, SON JOHN WAS NOTIFIED OF FINDINGS AND THIS NURSE SUGGESTED THAT HE COME IN IF HE WANTED. WILL CONTINUE TO MONITOR PT. BEAR HUGGER STILL IN PLACE AT THIS TIME. LAST RECTAL TEMP WAS 96.0 AT APPX 0715. WILL CONTINUE TO MONITOR.
--- NOTE | 2020-03-05 11:54 | PC.NURSE ---
DR PELAEZ HAS AUTHORIZED COMFORT MEASURES AT THIS TIME. THIS NURSE CONTACTED [facility] FOR A CONSULT. AWAITING CALL BACK.
--- NOTE | 2020-03-05 11:55 | P.PN_ITS ---
Internal Medicine - PN: Subj *Date: 03/05/20 *Time: 11:55 Exam Vital signs and Labs for Last 24 Hours: Temp Pulse Resp BP Pulse Ox 98.3 F 100 H 40 H 92/43 L 90 L 03/05/20 11:17 03/05/20 11:17 03/05/20 11:17 03/05/20 11:17 03/05/20 11:17 Laboratory Results - last 24 hr 03/04/20 10:48: Chlamy pneumoniae PCR Not detected, Adenovirus (PCR) Not detected, B. pertussis DNA (PCR) Not detected, Coronavirus OC43 (PCR) Not detected, Coronavirus HKU1 (PCR) Not detected, Coronavirus 229E (PCR) Not detected, SARS-CoV-2 (PCR) Not detected, Coronavirus NL63 (PCR) Not detected, Human Metapneumovir PCR Not detected, Influenza A (H1) PCR Not detected, Influ A (H1N1/09) PCR Not detected, Influenza A (H3) PCR Not detected, Influenza Type A (PCR) Not detected, Influenza Type B (PCR) Not detected, M. pneumoniae (PCR) Not detected, Parainfluenza 1 (PCR) Not detected, Parainfluenza 2 (PCR) Not detected, Parainfluenza 3 (PCR) Not detected, Parainfluenza 4 (PCR) Not detected, RSV (PCR) Not detected, Entero/Rhino (PCR) Not detected 03/04/20 12:44: POC Glucose 81 03/04/20 14:54: WBC 21.4 H* D, RBC 5.18, Hgb 14.8, Hct 51.2 H, MCV 98.8, MCH 28.5, MCHC 28.8 L, RDW 14.5, Plt Count 425 H D, MPV 7.9, Neut % (Auto) 86.0 H, Lymph % (Auto) 8.4 L, [place] % (Auto) 4.3, Eos % (Auto) 0.2, Baso % (Auto) 1.0, Neut # (Auto) 18.4 H, Lymph # (Auto) 1.8, [place] # (Auto) 0.9, Eos # (Auto) 0.1, Baso # (Auto) 0.2, Total Counted 100, Neutrophils % (Manual) 78 H, Band Neutrophils % 10.0 H, Lymphocytes % (Manual) 10, Monocytes % (Manual) 2, Platelet Estimate Normal, RBC Morphology Normal, Hypochromasia 2+ 03/04/20 14:54: Sodium 148 H, Potassium 4.2 D, Chloride 118 H, Carbon Dioxide < 5 L* D, Anion Gap 29.2 H, BUN 18 H D, Creatinine 0.60, Estimated Creat Clear 34, Estimated GFR 97, Est GFR ( Amer) 117, Glucose 128 H, Calcium 8.8, Total Bilirubin 0.5, AST 24, ALT 15, Alkaline Phosphatase 102, Total Protein 7.3, Albumin 3.7, Globulin 3.6 H, Albumin/Globulin Ratio 1.0 L 03/04/20 18:32: POC Glucose 104 03/04/20 20:02: POC Glucose 150 H 03/05/20 05:47: POC Glucose 208 H I & O for Last 24 hours: Intake & Output 03/02/20 03/03/20 03/04/20 03/05/20 23:59 23:59 23:59 23:59 Intake Total 1127 / 1127 3394 / 3394 1199 / 1199 0 / 0 Output Total 1651 / 1651 1225 / 1675 1950 / 1950 220 / 220 Balance -524 / -524 2169 / 1719 -751 / -751 -220 / -220 Weight 43 kg 44.707 kg 45.858 kg 47.4 kg Assessment and Plan (1) Healthcare-associated pneumonia Status: Acute Category: Medical Code(s): J18.9 - Pneumonia, unspecified organism (2) Hypernatremia Status: Acute Category: Medical Code(s): E87.0 - Hyperosmolality and hypernatremia (3) Dehydration Status: Acute Category: Medical Code(s): E86.0 - Dehydration (4) Respiratory failure with hypoxia Status: Acute Qualifiers: Chronicity: acute Qualified Code(s): J96.01 - Acute respiratory failure with hypoxia Category: Medical Code(s): J96.91 - Respiratory failure, unspecified with hypoxia (5) Unable to eat Status: Acute Category: Medical Code(s): 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
--- NOTE | 2020-03-05 11:57 | HMH.ACPN2 ---
Internal Medicine - PN: Subj *Date: 03/05/20 *Time: 11:57 Interval history: I did have a chance to meet and discuss the patient's course with her son yesterday. He relayed that his mother would not wish to have a G-tube under any circumstances, and that he would be amenable to hospice care. The patient continued to decline overnight. She became hypotensive, hypothermic, elevated white count and increasing gap suggest sepsis with acidosis. Remains on cefepime, Levaquin, and clindamycin. There is no chest x-ray today. Breath sounds were noted to be diffusely coarse yesterday, they remained so today. She does not however show any signs of distress. She has been nonverbal and nonresponsive since her admission here. The son is in the room with her today, and he continues to be in agreement with palliation measures. We have contacted hospice. Exam Vital signs and Labs for Last 24 Hours: Temp Pulse Resp BP Pulse Ox 98.3 F 100 H 40 H 92/43 L 90 L 03/05/20 11:17 03/05/20 11:17 03/05/20 11:17 03/05/20 11:17 03/05/20 11:17 Laboratory Results - last 24 hr 03/04/20 10:48: Chlamy pneumoniae PCR Not detected, Adenovirus (PCR) Not detected, B. pertussis DNA (PCR) Not detected, Coronavirus OC43 (PCR) Not detected, Coronavirus HKU1 (PCR) Not detected, Coronavirus 229E (PCR) Not detected, SARS-CoV-2 (PCR) Not detected, Coronavirus NL63 (PCR) Not detected, Human Metapneumovir PCR Not detected, Influenza A (H1) PCR Not detected, Influ A (H1N1/09) PCR Not detected, Influenza A (H3) PCR Not detected, Influenza Type A (PCR) Not detected, Influenza Type B (PCR) Not detected, M. pneumoniae (PCR) Not detected, Parainfluenza 1 (PCR) Not detected, Parainfluenza 2 (PCR) Not detected, Parainfluenza 3 (PCR) Not detected, Parainfluenza 4 (PCR) Not detected, RSV (PCR) Not detected, Entero/Rhino (PCR) Not detected 03/04/20 12:44: POC Glucose 81 03/04/20 14:54: WBC 21.4 H* D, RBC 5.18, Hgb 14.8, Hct 51.2 H, MCV 98.8, MCH 28.5, MCHC 28.8 L, RDW 14.5, Plt Count 425 H D, MPV 7.9, Neut % (Auto) 86.0 H, Lymph % (Auto) 8.4 L, [place] % (Auto) 4.3, Eos % (Auto) 0.2, Baso % (Auto) 1.0, Neut # (Auto) 18.4 H, Lymph # (Auto) 1.8, [place] # (Auto) 0.9, Eos # (Auto) 0.1, Baso # (Auto) 0.2, Total Counted 100, Neutrophils % (Manual) 78 H, Band Neutrophils % 10.0 H, Lymphocytes % (Manual) 10, Monocytes % (Manual) 2, Platelet Estimate Normal, RBC Morphology Normal, Hypochromasia 2+ 03/04/20 14:54: Sodium 148 H, Potassium 4.2 D, Chloride 118 H, Carbon Dioxide < 5 L* D, Anion Gap 29.2 H, BUN 18 H D, Creatinine 0.60, Estimated Creat Clear 34, Estimated GFR 97, Est GFR ( Amer) 117, Glucose 128 H, Calcium 8.8, Total Bilirubin 0.5, AST 24, ALT 15, Alkaline Phosphatase 102, Total Protein 7.3, Albumin 3.7, Globulin 3.6 H, Albumin/Globulin Ratio 1.0 L 03/04/20 18:32: POC Glucose 104 03/04/20 20:02: POC Glucose 150 H 03/05/20 05:47: POC Glucose 208 H I & O for Last 24 hours: Intake & Output 03/02/20 03/03/20 03/04/20 03/05/20 23:59 23:59 23:59 23:59 Intake Total 1127 / 1127 3394 / 3394 1199 / 1199 0 / 0 Output Total 1651 / 1651 1225 / 1675 1950 / 1950 220 / 220 Balance -524 / -524 2169 / 1719 -751 / -751 -220 / -220 Weight 94 lb 12.78 oz 98 lb 9 oz 101 lb 1.6 oz 104 lb 8 oz - Constitutional somnolent, obtunded - *Routine HEENT Exam Head: Present: atraumatic ENT: Present: mucous membranes moist - *Routine Neck Exam Present: supple. Absent: lymphadenopathy - *Routine Respiratory Exam Present: rhonchi. Absent: accessory muscle use, respiratory distress, wheezes - *Routine Cardiovascular Exam Present: RRR - *Routine Abdominal Exam Present: soft, normoactive bowel sounds. Absent: tenderness - *Routine Extremities Exam Absent: cyanosis, clubbing, edema - *Routine Skin Exam Present: warm. Absent: cyanosis, mottling, jaundice, rash - *Routine Neurological Exam Present: altered mental status. Absent: normal speech Assessment and Plan (1) Healthcare-a
--- NOTE | 2020-03-05 13:50 | PC.NURSE ---
HOSPICE CONSULT THIS AFTERNOON. HOSPICE NURSE STATED THAT PT WAS A CANDIDATE FOR ADMISSION TO HOSPICE.
--- NOTE | 2020-03-05 15:53 | PC.NURSE ---
PT HAS BEEN PLACED ON COMFORT MEASURES AND WAS ACCEPTED TO HOSPICE PENDING SIGNATURE FROM SON. SHE WILL NOT ANSWER TO HER NAME AND CANNOT MAKE NEEDS KNOWN TO STAFF. AT THIS TIME HER PUPILS ARE STILL REACTIVE TO LIGHT BUT SHE DOES NOT RESPOND TO STIMULI. ORAL CARE AND TURNS PERFORMED Q2 HOURS, PT HAS BEEN NSR ON TELEMETRY. SHE HAS BEEN HYPOTENSIVE THROUGHOUT SHIFT. SWELLING NOTED TO RUE. PT REMAINS ON 2LNC WITH DIMINISHED BREATH SOUNDS WITH COARSE CRACKLES T.O ON AUSCULTATION. PT OUTPUT HAS BEEN FAR BELOW NORMAL OUTPUT WITH ONLY 50 ML OF PALE YELLOW URINE BEING DRAINED FROM ABRAMS CATHETER THUS FAR. NO BM NOTED EITHER. ONE DOSE OF MORPHINE WAS ADMINISTERED PER MAR WITH GOOD EFFECTIVENESS. PT APPEARS COMFORTABLE AT THIS TIME. FSBS HAVE NOT BEEN PERFORMED R/T INITIATION OF COMFORT MEASURES. WILL CONTINUE TO MONITOR.
[2020-03-06 03:39] VITALS: RESP 28
[2020-03-06 05:03] VITALS: BMI 20.3
--- NOTE | 2020-03-06 06:00 | XR_ITS ---
PROCEDURE: XR CHEST PORTABLE Referring Doctor: Wilberto Burk Patient Age:79Y CLINICAL HISTORY: PNA Pneumonia follow-up COMPARISON: CR XR CHEST PORTABLE from 03/03/2020 CR XR CHEST PORTABLE from 03/04/2020 CR XR CHEST PORTABLE from 03/05/2020 FINDINGS: AP portable upright chest Left lung-increasing airspace disease density medial left lung base. Progressive atelectasis here along with infiltrate which now obscures the medial aspect left hemidiaphragm and partially obscures the descending aorta. Of slight additional elevation left hemidiaphragm reflecting atelectasis component but Right lung-minimal streaky infiltrate is seen is slightly more evident at right infrahilar region towards the right lung base but does not obscure the right diaphragm The patchy areas of low-density infiltrate seen at the periphery of the left mid lungs on prior studies have improved since March 03 CXR. Upper lung shannon overall appear clearer today Heart normal size but mild blunting left CP angle likely reflect small pleural effusion IMPRESSION: 1. Slight progression atelectasis/infiltrate left lung base-most evident at the medial left lung base. Blunting left CP angle suggesting small left pleural effusion 2..Subtle streaky infiltrate right infrahilar region and right lung base-slightly more evident today's study as well 3. However improvement/clearing subtle peripheral filtrates mid and upper lung shannon since March 03 CXR Dictated by: Paulino Gonzalez MD 03/06/2020 08:49 Paulino Goznalez MD in [facility] 03/06/2020 08:49
--- NOTE | 2020-03-06 06:19 | PC.NURSE ---
pt has slept through shift. 2LNC is applied. iv patent. pt appeared to be labored in breathing so prn med given for comfort. confirmed with hospice that pt has been accepted. all maintenance medication was dc and comfort meds are ordered. mottling noted to bilateral knees on assessment. output decreased. temp continues to decrease. last temp rectally was 93.9. bed in lowest position. appears to be resting comfortably at this time. will continue to monitor
[2020-03-06 08:00] VITALS: BP 69/41; PULSE 96; RESP 24; TEMP 35; O2SAT 90
--- NOTE | 2020-03-06 09:26 | PC.NURSE ---
PT HAS BEEN REPOSITIONED AND APPEARS COMFORTABLE. NO S/S OF AGITATION PRESENT, SHE APPEARS FREE FROM PAINAND DISTRESS, MOUT CARE PERFORMED Q2 HRS. WILL CONTINUE TO MONITOR.
--- NOTE | 2020-03-06 13:03 | HMH.ACPN2 ---
Internal Medicine - PN: Subj *Date: 03/06/20 *Time: 13:03 Interval history: Patient has been accepted by hospice services. Comfort measures are currently underway. When seen this morning she is resting comfortably, showing no signs of distress. Nursing staff relays no significant issues. Her regimen has been significantly streamlined. Spoke with her son yesterday. Exam Vital signs and Labs for Last 24 Hours: Temp Pulse Resp BP Pulse Ox 95.0 F L 96 H 24 69/41 L 90 L 03/06/20 08:00 03/06/20 08:00 03/06/20 08:00 03/06/20 08:00 03/06/20 08:00 I & O for Last 24 hours: Intake & Output 03/03/20 03/04/20 03/05/20 03/06/20 23:59 23:59 23:59 23:59 Intake Total 3394 / 3394 1199 / 1199 0 / 0 0 / 0 Output Total 1225 / 1675 1950 / 1950 220 / 220 25 / 25 Balance 2169 / 1719 -751 / -751 -220 / -220 -25 / -25 Weight 98 lb 9 oz 101 lb 1.6 oz 104 lb 8 oz 103 lb 9 oz - Constitutional no acute distress, chronically ill appearing - *Routine HEENT Exam Head: Present: normocephalic Eye: Present: EOMI, PERRL ENT: Present: mucous membranes moist - *Routine Neck Exam Present: supple. Absent: lymphadenopathy - *Routine Respiratory Exam Absent: accessory muscle use, respiratory distress - *Routine Cardiovascular Exam Present: RRR - *Routine Abdominal Exam Present: soft, normoactive bowel sounds. Absent: tenderness - *Routine Extremities Exam Present: clubbing, edema, extremity cold to touch. Absent: cyanosis - *Routine Skin Exam Present: lesions. Absent: cyanosis, jaundice - *Routine Neurological Exam Present: altered mental status. Absent: alert, oriented X3 Assessment and Plan (1) Healthcare-associated pneumonia Status: Acute Category: Medical Code(s): J18.9 - Pneumonia, unspecified organism (2) Hypernatremia Status: Acute Category: Medical Code(s): E87.0 - Hyperosmolality and hypernatremia (3) Dehydration Status: Acute Category: Medical Code(s): E86.0 - Dehydration (4) Respiratory failure with hypoxia Status: Acute Qualifiers: Chronicity: acute Qualified Code(s): J96.01 - Acute respiratory failure with hypoxia Category: Medical Code(s): J96.91 - Respiratory failure, unspecified with hypoxia (5) Unable to eat Status: Acute Category: Medical Code(s): 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 (6) Sepsis Status: Acute Category: Medical Code(s): A41.9 - Sepsis, unspecified organism (7) Terminal care Status: Acute Category: Medical Code(s): Z51.5 - Encounter for palliative care
[2020-03-06 18:15] VITALS: O2SAT 92
--- NOTE | 2020-03-06 19:15 | PC.NURSE ---
comfort measures still in place, q2 turn, q2 oral care performed, pt appears comfortable.
[2020-03-06 19:50] VITALS: BP 64/32; PULSE 68; RESP 24; TEMP 35.3; O2SAT 96
[2020-03-06 20:00] VITALS: RESP 24
[2020-03-06 21:42] VITALS: RESP 26
--- NOTE | 2020-03-07 04:07 | P.DN_ITS ---
Pronouncement Note - Date and Time of Date of : 03/07/20 Time of : 03:25 - PCOD Preliminary cause of : Pneumonia - Additional Data Confirmation of : no pulse Family: contacted Attending/PCP notified?: Yes Attending physician: Ten Villar MD Was code activated?: No Autopsy requested?: No forest examiner notified?: No Organ bank notified?: Yes Advance directives: Yes
--- NOTE | 2020-03-07 04:17 | PC.NURSE ---
0415 attempts made and message left for family to call back regarding patient
--- NOTE | 2020-04-05 14:49 | HMH.DEADDC ---
Discharge Sum: Prov - Provider Primary care physician: Mohamud Esparza MD Visit Care Team Role Provider Type Mohamud Esparza MD Primary Care Provider Staff Physician Neymar Maza MD Emergency Provider ER Physician Ten Villar MD Admit Provider Staff Physician Attending Provider Admitting clinician: Ten Villar Attending physician on admission: Ten Villar Consults: 03/05/20 12:27 Care Management Consult [Consult to Case Management] [CONS] Routine Reason For Consult: hospice Pronouncing clinician: Toni Galindo Discharge Sum: Diag - PCOD Cause of : Pneumonia Discharge Sum: Summary - Date and Time Date of admission: 03/01/20 20:15 Date of : 03/07/20 Time of : 03:25 - Hospital Course prior to Hospital Course Information: Admitted with pneumonia and mentation changes. Her condition steadily worsened. Comfort measures were undertaken after involved discussion with her son. - Additional Data Attending/PCP notified?: Yes Attending physician: Ten Villar MD Organ bank notified?: Yes Hospice patient?: Yes
--- NOTE | 2020-04-08 12:19 | HMH.DCSUM ---
General - General Admission date:: 03/01/20 Discharge date: 03/07/20 HPI HPI: 79-year-old female patient presented to the emergency room from [facility]. The staff reports she had a drop in oxygen saturations to 60% on room air. The [facility] staff reported to squad the patient sounded like she aspirated afterwards she was suctioned, placed on 5 L of oxygen per nasal cannula, and was given Lasix. In the emergency department she received cefepime, Levaquin, and clindamycin for possible aspiration. IV fluids were started with lactated Ringer's at 125 cc an hour Lab work revealed white blood cell count 18.1. Chemistries sodium 161, potassium 4.7, BUN 83, and creatinine 1.1 03/01/20 CXR: IMPRESSION: Poor inspiration with questionable minimal diffuse pneumonic infiltrate right perihilar region and right upper lobe Dictated by: Vaibhav, This morning patient sitting in bed, oxygen saturations are 100% on 2 L per nasal cannula. Patient is unresponsive to verbal stimuli and moans with tactile stimuli. Lungs have rhonchi and wheezes, abdomen soft nontender pure wick is in place. Cefepime and levofloxacin will be continued IV, IV fluids will be changed to half-normal saline at 150 an hour Hospital Course Hospital Course: pt remained non-verbal and her condition continued to decline after a conversation with her son we aimed for comfort measures her illness progressed and she Objective Vital signs: Temp Pulse Resp BP Pulse Ox 95.5 F L 68 26 H 64/32 L 96 03/06/20 19:50 03/06/20 19:50 03/06/20 21:42 03/06/20 19:50 03/06/20 19:50 - *Routine HEENT Exam ENT: Present: other - *Routine Neck Exam Comments: n/a - *Routine Respiratory Exam Present: other - *Routine Cardiovascular Exam Present: other - *Routine Abdominal Exam Present: other - *Routine Extremities Exam Comments: n/a - *Routine Skin Exam Comments: n/a DS: Diagnosis - Discharge Diagnosis (1) Healthcare-associated pneumonia Status: Acute (2) Hypernatremia Status: Acute (3) Dehydration Status: Acute (4) Respiratory failure with hypoxia Status: Acute (5) Unable to eat Status: Acute (6) Sepsis Status: Acute (7) Terminal care Status: Acute Discharge Plan - Patient Discharge Instructions ACTIVITY: Other DIET: other Patient Instructions: Pneumonia-Adult, Respiratory Failure - Follow up Plan Disposition: Home Medications: Home Medications Medication Instructions Recorded Confirmed Type Pioglitazone HCl [Actos] 30 mg PO DAILY 09/29/17 03/01/20 History lisinopriL [Lisinopril 2.5mg Tab] 5 mg PO DAILY 09/29/17 03/01/20 History Empagliflozin [Jardiance] 10 mg PO DAILY 03/17/19 03/01/20 History Insulin Glargine,Hum.rec.anlog 5 units SQ HS 03/17/19 03/01/20 History [Lantus Insulin 100units/mL 10mL vial] LORazepam [Lorazepam] 0.25 mg PO BID 03/17/19 03/01/20 History Melatonin/Pyridoxine HCl (B6) 1 each PO HS 03/17/19 03/01/20 History [Melatonin 5 mg Tablet] Metformin HCl 1,000 mg PO BID 03/17/19 03/01/20 History Simvastatin [Zocor] 10 mg PO HS 03/17/19 03/01/20 History Dextromethorphan HBr/Quinidine 1 each PO BID 03/01/20 03/01/20 History [Nuedexta 20-10 mg Capsule] Empagliflozin [Jardiance] 10 mg PO DAILY 03/01/20 03/01/20 History Memantine HCl [Memantine 10mg 10 mg PO BID 03/01/20 03/01/20 History Tablet] Mirtazapine [Remeron 15mg tablet] 15 mg PO HS 03/01/20 03/01/20 History Prescriptions/Medication Reconciliation: No Action lisinopriL [Lisinopril 2.5mg Tab] 5 mg PO DAILY Pioglitazone HCl [Actos] 30 mg PO DAILY Simvastatin [Zocor] 10 mg PO HS LORazepam [Lorazepam] 0.25 mg PO BID Empagliflozin [Jardiance] 10 mg PO DAILY Insulin Glargine,Hum.rec.anlog [Lantus Insulin 100units/mL 10mL vial] 5 units SQ HS Memantine HCl [Memantine 10mg Tablet] 10 mg PO
== END 2020-03-07 09:00 | disposition expired ==
LOC: ER 18:17 → 2ND 18:58
PROVIDERS: Nurse Practitioner Family; Admitting Provider Family Medicine; Emergency Provider Emergency Medicine; PCP Internal Medicine Adolescent Medicine; Visit Provider Family Medicine
DX: J18.9 Pneumonia, unspecified organism (principal); Y95 Nosocomial condition; J96.01 Acute respiratory failure with hypoxia; E86.0 Dehydration; E87.0 Hyperosmolality and hypernatremia; E11.9 Type 2 diabetes mellitus without complications; R13.10 Dysphagia, unspecified; A41.9 Sepsis, unspecified organism; Z79.899 Other long term (current) drug therapy; Z79.4 Long term (current) use of insulin; Z51.5 Encounter for palliative care
CPT/HCPCS: 36415; 71045; 80048; 80053; 81001; 82803; 82962; 83605; 84145; 84484; 85007; 85025; 86328; 87040; 87581; 87633; 87798; 93005; 94761; 96365; 96367; 99283; G0378; J1956